=== PATIENT | male | born 1975 ===

== ENCOUNTER 2021-11-29 20:51 | Emergency (ER) | payer SELFPAY ==
[~2021-11-29] VITALS: Ht 165.1 cm; Wt 68.2 kg
[2021-11-29] MEDS ORDERED: ACETAMINOPHEN 500 MG TABLET PO ONE (21:45)
[2021-11-29 22:09] LABS: COVID AG,FIA SOURCE NASAL SWAB
[2021-11-29 22:36] VITALS: BP 124/68
[2021-11-29 22:37] LABS: INFLUENZA TYPE A NEGATIVE FOR TYPE A (NEGATIVE); INFLUENZA TYPE B NEGATIVE FOR TYPE B (NEGATIVE)
== END 2021-11-29 23:55 | disposition home or self-care (01) ==
LOC: EMS 21:00
DX: U07.1 COVID-19 (principal)
CPT/HCPCS: 71045; 87804; 99284